=== PATIENT | female | born 1995 | race Caucasian/White ===

== ENCOUNTER 2023-10-01 08:37 | Outpatient (CLI) | payer BC, SELFPAY ==
[2023-10-01 09:48] LABS: RSV RNA, RT-PCR Negative (Negative)
== END 2023-10-01 08:38 | disposition home or self-care (01) ==
LOC: ANHLAB 08:44
PROVIDERS: PCP Family Medicine; Visit Provider Family Medicine
DX: R05.9 Cough, unspecified (principal)
CPT/HCPCS: 87634

== ENCOUNTER 2024-07-19 12:24 | Emergency (ER) | payer BC, SELFPAY ==
[2024-07-19 12:44] VITALS: BP 135/104; PULSE 83; RESP 20; TEMP 36.9; O2SAT 100
--- NOTE | 2024-07-19 14:47 | ED.EYEPROB ---
HPI - Eye Problem General Chief complaint: Eye Problems <MARIJA Walker Last Filed: 07/20/24 09:30> Stated complaint: allergy to eyes <MARIJA Walker Last Filed: 07/20/24 09:30> Time Seen by Provider: 07/19/24 14:47 <MARIJA Walker Last Filed: 07/20/24 09:30> Focused HPI: This is a 29-year-old female that presents to the emergency department for right eye irritation and redness. Ongoing since yesterday. She was evaluated urgent care for this. Has been applying antibiotic eyedrops as prescribed. She has had worsening burning pain and irritation. Also reports photophobia and blurry vision. GENERAL: Well-appearing, well-nourished, and in no acute distress. HEAD: Normocephalic, atraumatic. ENT: PERRLA and EOMI. Right eye with conjunctival injection and tearing CHEST: Clear to auscultation. ?No respiratory distress. HEART: Regular rate and rhythm.? NEURO: ?Alert and oriented x3. Patient screened in triage and initial orders placed.? ?Additional care and disposition to be based upon?diagnostic testing and treatment. <MARIJA Walker Last Filed: 07/20/24 09:30> Source: patient <MARIJA Ta Last Filed: 07/19/24 19:43> Mode of arrival: ambulatory <MARIJA Ta Last Filed: 07/19/24 19:43> Limitations: no limitations <MARIJA Ta Last Filed: 07/19/24 19:43> History of Present Illness HPI Narrative: Agree with above HPI. 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 Has not taken any allergic medications or pain medication today. States symptoms have improved some with the antibiotic eyedrops, though the medication causes burning. <MARIJA Ta Last Filed: 07/19/24 19:43> Related Data Allergies/adverse reactions: Allergies Allergy/AdvReac Type Severity Reaction Status Date / Time No Known Allergies Allergy Verified 07/19/24 15:21 <Candi Perales PA-C - Last Filed: 07/20/24 09:30> Review of Systems Review of Systems: All systems reviewed & are unremarkable except as noted in HPI. <Maria R Hinton PA-C - Last Filed: 07/19/24 19:43> All systems reviewed & are unremarkable except as noted in HPI and below <Maria R Hinton PA-C - Last Filed: 07/19/24 19:43> PENDING SALE TO [facility] Past Medical History Medical History: Medical History (Updated 07/20/24 @ 09:30 by Candi Perales PA-C) No active medical problems <Candi Perales PA-C - Last Filed: 07/20/24 09:30> Social History Social History: Social History (Updated 07/20/24 @ 09:30 by Candi Perales PA-C) Substance use: never <Candi Perales PA-C - Last Filed: 07/20/24 09:30> Exam Narrative: GENERAL: Well appearing, obese with BMI of 31.8, non-toxic, in no acute distress. HEAD: Normocephalic, atraumatic. EYES: PERRL/EOMI, conjunctiva injected bilaterally, R>L. Serous drainage bilaterally, R>L. No significant periorbital redness or swelling. RESPIRATORY: Airway patent, respirations nonlabored. CARDIOVASCULAR: Regular rate and rhythm MUSCULOSKELETAL: Moves all extremities. No gross deformities. SKIN: Warm, dry, normal color. NEURO: A&O X3. Speech clear. PSYCHIATRIC: Appropriate mood and affect. Normal interaction. <Maria R Hinton PA-C - Last Filed: 07/19/24 19:43> Course Vital Signs Vital signs: Vital Signs Temperature 98.4 F 07/19/24 12:44 Pulse Rate 83 07/19/24 12:44 Respiratory Rate 07/19/24 12:44 Blood Pressure 135/104 H 07/19/24 12:44 Pulse Oximetry 100 07/19/24 12:44 Oxygen Delivery Room Air 07/19/24 12:44 Temperature 98.4 F 07/19/24 12:44 Pulse Rate 83 09/30/24 12:44 Respiratory Rate 20 07/19/24 12:44 Blood Pressure 135/104 H 07/19/24 12:44 Pulse Oximetry 100 07/19/24 12:44 Oxygen Delivery Room Air 07/19/24 12:44 <Candi Perales PA-C - Last Filed: 07/20/24 09:30> Vital S
[2024-07-19] MEDS: diphenhydrAMINE HCl CAP 25 MG CAPSULE PO (17:44)
[2024-07-19] MEDS: ACETAMINOPHEN 500 MG TABLET 1000 MG PO (17:45)
[2024-07-19] MEDS: KETOROLAC (*BKC) 60 MG/2 ML VIAL IM (17:45)
== END 2024-07-19 19:18 | disposition home or self-care (01) ==
PROVIDERS: Emergency Provider Physician Assistant; PCP Family Medicine
DX: H10.33 Unspecified acute conjunctivitis, bilateral (principal); S05.02XA Injury of conjunctiva and corneal abrasion without foreign body, left eye, initial encounter; X58.XXXA Exposure to other specified factors, initial encounter
CPT/HCPCS: 96372; 99283; A9270; J1885